=== PATIENT | male | born 1945 | race Two or more races ===

== ENCOUNTER → 2017-01-20 | Outpatient (CLI) | payer MEDICARE ==
[~2017-01-20] MED LIST: /WARF25TA; /WARF5TA; ACET65TA; ACTO15TA OR; ASPI81TA60 PO; COUM2.5T17 PO; CRES10TA32 PO; METF500T13 PO; MULTCAP PO; PERC5TAB12 PO; PERC5TAB8; PERC7.5T8; TYLE167L PO; VYTO10TA5; [UNRECOGNIZED DRUG - REMARK] OR; prevacid OR
--- NOTE | 2017-01-21 09:18 | REP ---
MRI PELVIS: TECHNIQUE: Multiple sequences obtained in the axial, coronal and sagittal planes. There is very mild arthritic change at the sacroiliac joints bilaterally, with mild subchondral sclerosis and edema anteriorly on both sides of the joints, left greater than right. There is no bone marrow edema or occult fracture. There is no evidence of avascular necrosis. Tiny amount of fluid and mild edema seen along the lateral aspect of the greater trochanters of the proximal femurs, consistent with mild bilateral greater trochanteric tendinobursitis. Normal size inguinal lymph nodes are seen bilaterally. There is a normal amount of joint fluid at the hip joints. Within the pelvis itself no mass, adenopathy, or free fluid is seen. 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 No occult fracture. Mild bilateral greater trochanteric tendinobursitis. No other significant finding. Signed by Sandeep Layton MD 01/21/2017 01:22 P
== END ==
LOC: M RAD 17:18
PROVIDERS: ATTEND Physician Assistant
DX: M16.12 Unilateral primary osteoarthritis, left hip (principal)

== ENCOUNTER → 2018-10-20 | Outpatient (CLI) | payer MEDICARE, OTHER ==
[~2018-10-20] MED LIST changes: -/WARF25TA; -/WARF5TA; +COUM1TAB17; +COUM1TAB18; +CRES10TA PO; -CRES10TA32 PO
--- NOTE | 2018-10-20 22:04 | REPVR ---
EXAM: MR Lumbar Spine Without Contrast. EXAM DATE/TIME: 10/20/2018 5:49 PM CLINICAL HISTORY: 73 years old, male; Low back pain; Additional info: Lumbar pain ddd ? compression FX TECHNIQUE: Imaging protocol: Multiplanar magnetic resonance images of the lumbar spine without intravenous contrast. COMPARISON: No relevant prior studies available. FINDINGS: There is a central and anterior compression deformity of the L2 vertebral body with loss of central vertebral body height of approximately 50%. There is increased T2 signal in the L2 vertebral body on inversion recovery sequences and findings are likely consistent with an acute anterior compression deformity of the L2 vertebral body. No definite evidence of retropulsion of osseous fragments into the central canal. There is mild anterior wedging of the L3 vertebral body with loss of vertebral body height between 25-30%. No increased signal on inversion recovery sequences and this is likely chronic. Lumbar vertebral body heights are otherwise maintained. There is mild disc space narrowing at L1-L2 and L2-L3. No AP malalignment. No other signal abnormalities within the osseous elements of the lumbar spine. Conus medullaris ends at L1. On axial sequences, at the level of L1-L2, there is a diffuse disc bulge with superimposed broad-based disc protrusion measuring up to 3.8 mm in AP diameter. There is mild facet and ligamentous hypertrophy with overall mild central canal stenosis. No definite neural foraminal stenosis. At the level of L2-L3, there is a diffuse disc bulge with superimposed broad-based disc protrusion measuring up to 3 mm in AP diameter. Facet and ligamentous hypertrophy with overall mild central canal stenosis. No definite neural foraminal stenosis. At the level of L3-L4, there is a diffuse disc bulge with superimposed broad-based disc protrusion measuring up to 4 mm in AP diameter. There is facet and ligamentous hypertrophy with overall mild to moderate central canal stenosis. There appears to be at least mild right neural foraminal stenosis on the exiting L3 nerve root. At the level of L4-L5, there is a diffuse disc bulge. Mild facet and ligamentous hypertrophy with normal overall central canal or neural foraminal stenosis. At the level of L5-S1, there is a central disc protrusion measuring up to 3 mm in AP diameter. No significant central canal stenosis. At least mild bilateral neural foraminal stenosis on the exiting L5 nerve roots. IMPRESSION: Probable acute central and anterior compression deformity of the L2 vertebral body with loss of vertebral body height of approximately 50%. No evidence of retropulsion of osseous fragments into the central canal. Probable chronic compression deformity of the L3 vertebral body. Multilevel spondylotic changes as described above. Electronically signed by: Jovani Summers On 10/20/2018 22:04:05 PM
== END ==
LOC: M RAD 15:20
PROVIDERS: ATTEND Physician Assistant
DX: M54.5 Low back pain (principal)